=== PATIENT | male | born 1990 | race Caucasian/White ===

== ENCOUNTER 2019-11-08 15:26 | Emergency (ER) | payer OTHER ==
[~2019-11-08] VITALS: Ht 185.4 cm; Wt 74.0 kg
[2019-11-08 15:32] VITALS: BP 122/68
--- NOTE | 2019-11-08 16:53 | NUR ---
PT ENDORSED TO BREAK RN: MARY
== END 2019-11-08 17:17 | disposition home or self-care (01) ==
LOC: ED 17:10
DX: S62.221A Displaced Rolando's fracture, right hand, initial encounter for closed fracture (principal); F17.200 Nicotine dependence, unspecified, uncomplicated; Y04.0XXA Assault by unarmed brawl or fight, initial encounter; Y93.89 Activity, other specified; Y92.410 Unspecified street and highway as the place of occurrence of the external cause; Y99.8 Other external cause status
CPT/HCPCS: 29125; 99283

== ENCOUNTER 2021-03-05 14:28 | Emergency (ER) | payer OTHER ==
[~2021-03-05] VITALS: Ht 185.4 cm; Wt 70.2 kg
[2021-03-05 14:40] VITALS: BP 137/77
--- NOTE | 2021-03-05 14:56 | NUR ---
PT AMBULATED TO ROOM FROM ER. PT STATED THAT HE WAS SNOWBOARDING THIS MORNING AND HE FELL AND IS EXPERIENCING LEFT SHOULDER PAIN. PT HAS MILD SWELLING AROUND LEFT SHOULDER, NO BRUISING NOTED. PT UNABLE TO LIFT LEFT ARM WITHOUT SEVERE PAIN.
--- NOTE | 2021-03-05 15:12 | NUR ---
PT TO X RAY
--- NOTE | 2021-03-05 16:07 | NUR ---
DISCHARGE INSTRUCTIONS REVIEWED WITH PT. ALL QUESTIONS ANSWERED AT THIS TIME.
== END 2021-03-05 16:09 | disposition home or self-care (01) ==
LOC: ED 16:03
DX: S42.032A Displaced fracture of lateral end of left clavicle, initial encounter for closed fracture (principal); W19.XXXA Unspecified fall, initial encounter; Y93.89 Activity, other specified; Y92.89 Other specified places as the place of occurrence of the external cause; Y99.8 Other external cause status
CPT/HCPCS: 99283